=== PATIENT | female | born 1970 | race Caucasian/White ===

== ENCOUNTER 2022-07-27 10:09 | Inpatient (IN) | payer SELFPAY ==
[2022-07-27 12:00] VITALS: BMI 37.8
[2022-07-27] MEDS ORDERED: HumaLOG 300 UNITS/3 ML VIAL SC PRN ×2 (13:58)
[2022-07-27] MEDS ORDERED: Dextrose 5% in Water 1,000 ML IV PRN (13:58)
[2022-07-27] MEDS ORDERED: Dextrose 50% Abboject 50 ML SYRINGE SLOW IVP PRN (13:58)
[2022-07-27] MEDS ORDERED: Nitroglycerin 0.4 MG TAB (25 Tab Bottle) SL PRN (13:59)
[2022-07-27] MEDS ORDERED: hydrALAZINE 20 MG/ML VIAL SLOW IVP PRN (13:59)
[2022-07-27] MEDS: Acetaminophen 325 MG TAB PO PRN (17:14)
[2022-07-27 17:33] LABS: SARS-CoV-2 NAA Rapid Test Not Detected (NotDetected)
[2022-07-27 19:32] LABS: Amphetamine Detected (NotDetected); Barbiturates Screen Not Detected (NotDetected); Benzodiazepine Screen Not Detected (NotDetected); Cocaine Metabolite Screen Not Detected (NotDetected); Methadone Not Detected (NotDetected); Methamphetamine Detected (NotDetected); Opiate Screen Not Detected (NotDetected); Oxycodone Screen Not Detected (NotDetected); Phencyclidine (PCP) Not Detected (NotDetected); THC/Cannabinoid Screen Not Detected (NotDetected); Tricyclic Screen Not Detected (NotDetected)
[2022-07-27] MEDS: Atorvastatin Calcium 40 MG TAB PO SCH (21:25)
[2022-07-28 04:26] LABS: #Basophils 0.1 10x3/uL (0.0-0.2); #Eosinphils 0.3 10x3/uL (0.0-0.5); #Monocytes 0.9 10x3/uL (0.0-1.1); %Basophils 0.5 % (0.0-2.0); %Eosinophils 2.5 % (0.0-6.0); %Lymphocytes 42.9 % (18.0-47.0); %Monocytes 7.9 % (0.0-10.0); %Neutrophils 45.7 % (40.0-75.0); Mean Corpuscular Volume 85.5 fl (81.6-98.3); Mean Platelet Volume 9.8 fl (7.4-10.4); Platelet Count 305 10x3/uL (150-450); RBC Distribution Width 12.5 % (11.5-14.5); Red Blood Cell (RBC) Count 4.82 10x6/uL (3.90-5.03)
[2022-07-28 05:02] LABS: Anion Gap 14 mmol/L (10-20); BUN (Urea Nitrogen) 22 mg/dL (7.0-18.7); Calc. Creatinine Clearance 96 mL/min (70-130); Calcium 8.8 mg/dL (7.8-10.44); Carbon Dioxide 26 mmol/L (22-29); Chloride 101 mmol/L (98-107); Estimated GFR 71; Glucose 263 mg/dL (70-105); Magnesium 2.1 mg/dL (1.6-2.6); Potassium 3.7 mmol/L (3.5-5.1); Sodium 137 mmol/L (136-145)
[2022-07-28 05:15] LABS: Cardiac Risk 5.3 (Less than 4.5); Cholesterol 229 mg/dl (< 200 Desired); HDL Cholesterol 43 mg/dL (>60 Neg Risk); LDL Cholesterol, Calculated 136 mg/dL; Triglycerides 249 mg/dL (Less than 150)
[2022-07-28] MEDS ORDERED: Dextrose 50% Abboject 50 ML SYRINGE SLOW IVP PRN (08:18)
[2022-07-28] MEDS ORDERED: Dextrose 5% in Water 1,000 ML IV PRN (08:18)
[2022-07-28] MEDS: Aspirin Chewable 81 MG TAB PO SCH (09:28)
[2022-07-28] MEDS: Acetaminophen 325 MG TAB PO PRN (09:28)
[2022-07-28] MEDS: Lantus 1000 UNITS/10 ML VIAL SC SCH (09:28)
[2022-07-28] MEDS: Enoxaparin Sodium 40 MG/0.4 ML SYRINGE SC SCH (09:28)
[2022-07-28] MEDS: Insulin Regular 300 UNITS/3 ML VIAL SC PRN ×3 (11:57→22:05)
[2022-07-28 13:51] LABS: Hemoglobin A1c 10.6 % (4.0-6.0)
[2022-07-28] MEDS: metFORMIN 500 MG TAB PO SCH (17:07)
[2022-07-28] MEDS ORDERED: Lantus 1000 UNITS/10 ML VIAL SC SCH (21:00)
[2022-07-28] MEDS: Atorvastatin Calcium 40 MG TAB PO SCH (22:05)
[2022-07-29] MEDS: Acetaminophen 325 MG TAB PO PRN (04:24)
[2022-07-29 05:07] LABS: #Basophils 0.1 10x3/uL (0.0-0.2); #Eosinphils 0.2 10x3/uL (0.0-0.5); #Monocytes 0.9 10x3/uL (0.0-1.1); #Neutrophils 7.4 10x3/uL (1.5-8.4); %Basophils 0.5 % (0.0-2.0); %Eosinophils 1.7 % (0.0-6.0); %Lymphocytes 32.9 % (18.0-47.0); %Monocytes 7.2 % (0.0-10.0); %Neutrophils 57.3 % (40.0-75.0); Hemoglobin 14.6 g/dL (12.0-15.5); Mean Corpuscular Hemoglobin 29.1 pg (27.0-33.0); Mean Corpuscular Volume 85.8 fl (81.6-98.3); Platelet Count 315 10x3/uL (150-450); RBC Distribution Width 12.5 % (11.5-14.5); Red Blood Cell (RBC) Count 5.01 10x6/uL (3.90-5.03)
[2022-07-29 05:14] LABS: Anion Gap 14 mmol/L (10-20); BUN (Urea Nitrogen) 21 mg/dL (7.0-18.7); Calc. Creatinine Clearance 114 mL/min (70-130); Calcium 8.8 mg/dL (7.8-10.44); Carbon Dioxide 24 mmol/L (22-29); Chloride 105 mmol/L (98-107); Estimated GFR 87; Glucose 186 mg/dL (70-105); Sodium 139 mmol/L (136-145)
[2022-07-29] MEDS: Insulin Regular 300 UNITS/3 ML VIAL SC PRN ×2 (05:44→12:22)
[2022-07-29] MEDS: Enoxaparin Sodium 40 MG/0.4 ML SYRINGE SC SCH (08:13)
[2022-07-29] MEDS: metFORMIN 500 MG TAB PO SCH ×2 (08:13→16:32)
[2022-07-29] MEDS: Lantus 1000 UNITS/10 ML VIAL SC SCH (08:13)
[2022-07-29] MEDS: Aspirin Chewable 81 MG TAB PO SCH (08:13)
[2022-07-29] MEDS ORDERED: Lisinopril 20 MG TAB PO SCH (09:00)
[2022-07-29] MEDS ORDERED: hydrALAZINE 20 MG/ML VIAL SLOW IVP PRN (11:46)
[2022-07-29 16:37] VITALS: BP 135/71; TEMP 98.5
== END 2022-07-29 17:00 | disposition home or self-care (01) | DRG 69 ==
LOC: CSHTELE 10:09 → OBSVTOIN 07-28 16:56
PROVIDERS: ADMIT Hospitalist; ATTEND Hospitalist
DX: G45.9 Transient cerebral ischemic attack, unspecified (principal); L03.116 Cellulitis of left lower limb; I10 Essential (primary) hypertension; E66.9 Obesity, unspecified; F41.9 Anxiety disorder, unspecified; E11.65 Type 2 diabetes mellitus with hyperglycemia; R07.9 Chest pain, unspecified; F15.10 Other stimulant abuse, uncomplicated; Z20.822 Contact with and (suspected) exposure to COVID-19; E11.319 Type 2 diabetes mellitus with unspecified diabetic retinopathy without macular edema; E11.42 Type 2 diabetes mellitus with diabetic polyneuropathy; Z79.84 Long term (current) use of oral hypoglycemic drugs; Z79.899 Other long term (current) drug therapy; Z86.73 Personal history of transient ischemic attack (TIA), and cerebral infarction without residual deficits; Z90.49 Acquired absence of other specified parts of digestive tract; Z91.19 Patient's noncompliance with other medical treatment and regimen; Z68.37 Body mass index [BMI] 37.0-37.9, adult
CPT/HCPCS: 36415; 36416; 70551; 80048; 80061; 80306; 83036; 83735; 84443; 85025; 93005; 93010; 93306; 93880; 94760; 96372; 97139; G0378; J0360; J1650; J1815; U0002